=== PATIENT | male | born 1995 | race Asian ===

== ENCOUNTER 2018-10-15 10:58 | Emergency (ER) | payer MEDICAID ==
[~2018-10-15] VITALS: Ht 170.2 cm; Wt 74.5 kg
--- NOTE | 2018-10-15 11:10 | NUR ---
called for triage no answer
[2018-10-15 11:21] VITALS: BP 136/88
--- NOTE | 2018-10-15 12:02 | NUR ---
TO ROOM 26
[2018-10-15 12:06] LABS: BASOPHILS # (AUTO) 0.04 x10^3/uL (0-0.1); BASOPHILS % (AUTO) 1 % (0-1); EOSINOPHILS % (AUTO) 2 % (1-7); LYMPHOCYTES # (AUTO) 1.61 x10^3/uL (1-3.4); LYMPHOCYTES % (AUTO) 19 % (22-44); MD NO; MEAN CORPUSCULAR HEMOGLOBIN 29.3 pg (27.5-34.5); MEAN CORPUSCULAR HGB CONC 33.9 g/dL (33.2-36.2); MEAN CORPUSCULAR VOLUME 86.7 fL (81-97); MEAN PLATELET VOLUME 7.4 fL (7.4-10.4); MONOCYTES # (AUTO) 0.48 x10^3/uL (0.2-0.8); MONOCYTES % (AUTO) 6 % (2-9); NEUTROPHILS # (AUTO) 6.36 x10^3/uL (1.8-6.8); NEUTROPHILS % (AUTO) 73 % (42-75); PLATELET COUNT 388 x10^3/uL (130-400); RED BLOOD COUNT 5.45 x10^6/uL (4.38-5.82); RED CELL DISTRIBUTION WIDTH 13.4 % (9.4-14.8)
[2018-10-15 12:18] LABS: ALBUMIN 4.3 g/dL (3.4-5.0); ANION GAP 6 mmol/L (5-15); CALCIUM 9.1 mg/dL (8.5-10.1); CHLORIDE 104 mmol/L (98-107); CREATININE 0.99 mg/dL (0.7-1.3)
[2018-10-15 12:22] LABS: TROPONIN I < 0.015 ng/mL (0.000-0.045)
== END 2018-10-15 12:50 | disposition home or self-care (01) ==
LOC: ED 12:27
DX: R07.89 Other chest pain (principal)
CPT/HCPCS: 36415; 71045; 80048; 82040; 84484; 85025; 93005; 99284

== ENCOUNTER 2019-11-06 08:36 | Emergency (ER) | payer MEDICAID ==
[~2019-11-06] VITALS: Ht 170.2 cm; Wt 68.0 kg
[2019-11-06 08:45] VITALS: BP 128/91
--- NOTE | 2019-11-06 08:57 | NUR ---
first contact with pt. pt states "I think I am special. I went crazy two weeks ago. I went to doctor unannounced and went to [place]. I don't have any thoughts of wanting to hurt my self or anyone else. I am hoping to go to a mental asylum." pt denies any physical symptoms. pt's aox4. resps even and unlabored.
[2019-11-06] MEDS ORDERED: RISPERIDONE 1 MG TABLET PO ONE (09:30)
[2019-11-06] MEDS ORDERED: RISPERIDONE 2 MG TABLET ONE (09:32)
--- NOTE | 2019-11-06 09:35 | NUR ---
PT MEDICATED PER [facility]. PT TOLERATED WELL.
--- NOTE | 2019-11-06 09:40 | NUR ---
Patient given discharge instructions and they have confirmed that they understand the instructions. Patient ambulatory with steady gait.
== END 2019-11-06 09:41 | disposition home or self-care (01) ==
LOC: ED 09:29
DX: F39 Unspecified mood [affective] disorder (principal)
CPT/HCPCS: 99283

== ENCOUNTER 2020-11-30 14:37 | Emergency (ER) | payer MEDICAID ==
[~2020-11-30] VITALS: Ht 170.2 cm; Wt 82.3 kg
[2020-11-30 14:48] VITALS: BP 131/89
[2020-11-30] MEDS ORDERED: LORazepam 1MG TABLET ONE (15:59)
[2020-11-30] MEDS ORDERED: LORazepam 1MG TABLET PO ONE (16:00)
[2020-11-30] MEDS ORDERED: OLANZAPINE 5 MG TABLET ONE (16:10)
[2020-11-30 16:13] LABS: BASOPHILS % (AUTO) 1 % (0-1); EOSINOPHILS % (AUTO) 2 % (1-7); LYMPHOCYTES % (AUTO) 25 % (22-44); MEAN CORPUSCULAR HEMOGLOBIN 28.7 pg (27.5-34.5); MEAN CORPUSCULAR HGB CONC 33.6 g/dL (33.2-36.2); MEAN PLATELET VOLUME 7.4 fL (7.4-10.4); MONOCYTES % (AUTO) 8 % (2-9); NEUTROPHILS % (AUTO) 64 % (42-75); PLATELET COUNT 475 x10^3/uL (130-400); RED BLOOD COUNT 5.55 x10^6/uL (4.38-5.82); RED CELL DISTRIBUTION WIDTH 13.3 % (9.4-14.8)
[2020-11-30 16:16] LABS: ALBUMIN 4.3 g/dL (3.4-5.0); ANION GAP 3 mmol/L (5-15); CALCIUM 9.4 mg/dL (8.5-10.1); CHLORIDE 105 mmol/L (98-107)
[2020-11-30 16:17] LABS: MD NO
[2020-11-30 16:19] LABS: ALANINE AMINOTRANSFERASE 87 U/L (12-78); ALKALINE PHOSPHATASE 70 U/L (45-117); CREATININE 1.03 mg/dL (0.7-1.3); TOTAL PROTEIN 7.8 g/dL (6.4-8.2)
[2020-11-30 16:20] LABS: SALICYLATE LEVEL < 1.7 mg/dL (2.8-20.0)
--- NOTE | 2020-11-30 16:22 | NUR ---
[facility] ADMIN PER OCT. PT PROVIDED URINE SAMPLE. UA COLLECTED AND TAKEN TO LAB. PT SITTING ON [facility]. JOAN.
[2020-11-30] MEDS ORDERED: OLANZAPINE ODT 10MG PO ONE (16:30)
[2020-11-30] MEDS ORDERED: OLANZAPINE 5 MG TABLET PO ONE (16:30)
[2020-11-30 16:36] LABS: AMPHETAMINE SCREEN, URINE Negative (Negative); BARBITURATE SCREEN, URINE Negative (Negative); BENZODIAZEPINE SCREEN, URINE Negative (Negative); CANNABINOID SCREEN, URINE Negative (Negative); COCAINE SCREEN, URINE Negative (Negative); METHADONE SCREEN, URINE Negative (Negative); OPIATE SCREEN, URINE Negative (Negative)
== END 2020-11-30 18:11 | disposition home or self-care (01) ==
LOC: ED 17:02
DX: F20.0 Paranoid schizophrenia (principal); F15.10 Other stimulant abuse, uncomplicated; I10 Essential (primary) hypertension; F17.210 Nicotine dependence, cigarettes, uncomplicated
CPT/HCPCS: 36415; 80053; 80299; 80307; 80320; 80329; 85025; 99284; G0480

== ENCOUNTER 2021-03-31 10:18 | Emergency (ER) | payer MEDICARE, MEDICAID ==
[~2021-03-31] VITALS: Ht 172.7 cm; Wt 76.0 kg
[2021-03-31] MEDS ORDERED: OLANZAPINE 5 MG TABLET PO ONE (12:00)
[2021-03-31] MEDS ORDERED: OLANZAPINE ODT 10MG PO ONE (12:00)
[2021-03-31 12:05] LABS: BASOPHILS % (AUTO) 1 % (0-1); EOSINOPHILS % (AUTO) 1 % (1-7); LYMPHOCYTES % (AUTO) 22 % (22-44); MEAN CORPUSCULAR HEMOGLOBIN 28.5 pg (27.5-34.5); MEAN CORPUSCULAR HGB CONC 34.2 g/dL (33.2-36.2); MEAN PLATELET VOLUME 7.1 fL (7.4-10.4); MONOCYTES % (AUTO) 6 % (2-9); NEUTROPHILS % (AUTO) 71 % (42-75); PLATELET COUNT 401 x10^3/uL (130-400); RED BLOOD COUNT 5.36 x10^6/uL (4.38-5.82); RED CELL DISTRIBUTION WIDTH 13.1 % (9.4-14.8)
[2021-03-31 12:14] LABS: ALANINE AMINOTRANSFERASE 60 U/L (12-78); ALBUMIN 4.2 g/dL (3.4-5.0); ANION GAP 8 mmol/L (5-15); CALCIUM 9.3 mg/dL (8.5-10.1); CHLORIDE 105 mmol/L (98-107); CREATININE 0.85 mg/dL (0.7-1.3)
[2021-03-31 12:17] LABS: ALKALINE PHOSPHATASE 74 U/L (45-117); BILIRUBIN,TOTAL 1.1 mg/dL (0.2-1.0); SALICYLATE LEVEL < 1.7 mg/dL (2.8-20.0); TOTAL PROTEIN 7.9 g/dL (6.4-8.2)
--- NOTE | 2021-03-31 12:19 | NUR ---
pt presents to ED with c/o increased paranoia, denies SI at this time. pt is a&o, resps even and unlabored, calm and cooperative. urine sent. pt belongings bagged and secured. sitter monitoring from [facility] for safety. awaiting psych consult and dispo.
[2021-03-31 12:56] LABS: AMPHETAMINE SCREEN, URINE Negative (Negative); BARBITURATE SCREEN, URINE Negative (Negative); BENZODIAZEPINE SCREEN, URINE Negative (Negative); CANNABINOID SCREEN, URINE Negative (Negative); COCAINE SCREEN, URINE Negative (Negative); METHADONE SCREEN, URINE Negative (Negative); OPIATE SCREEN, URINE Negative (Negative)
--- NOTE | 2021-03-31 13:15 | NUR ---
psych consult in progress.
[2021-03-31 14:34] VITALS: BP 109/66
--- NOTE | 2021-03-31 14:36 | NUR ---
pt has made plan for safe discharge with [facility]. pt referred to [facility]. Pt given dc instructions and script, educated regarding rx for zyprexa which was sent to [facility] [address]. pt verbalizes understanding. pt a&o, resps even and unlabored, no complaint at dc. pt ambulatory to dc desk with steady gait, states he is taking taxi cab at discharge. terrance Cline
== END 2021-03-31 14:37 | disposition home or self-care (01) ==
LOC: ED 12:02
DX: F20.0 Paranoid schizophrenia (principal); F28 Other psychotic disorder not due to a substance or known physiological condition; I10 Essential (primary) hypertension; F17.200 Nicotine dependence, unspecified, uncomplicated
CPT/HCPCS: 36415; 80053; 80299; 80307; 80320; 80329; 85025; 99284; G0480